=== PATIENT | female | born 1980 | race Caucasian/White ===

== ENCOUNTER 2023-09-15 08:37 | Day surgery (SDC) | payer BC ==
[~2023-09-15] VITALS: Ht 160 cm; Wt 125.0 kg
[2023-09-15 09:10] VITALS: BP 123/81; PULSE 74; RESP 16
[2023-09-15] MEDS ORDERED: BUSP10TA11 PO (09:22)
[2023-09-15] MEDS ORDERED: FLUO40CA10 PO (09:22)
[2023-09-15] MEDS ORDERED: MULT-1085 PO (09:22)
[2023-09-15] MEDS ORDERED: tumeric PO (09:22)
[2023-09-15] MEDS ORDERED: MIDAZolam 1 MG/ML 5ML VIAL ONE (10:32)
[2023-09-15] MEDS ORDERED: fentaNYL/PF 50MCG/1 ML 2ML syringe ONE (10:32)
[2023-09-15 11:06] VITALS: BP 105/68; PULSE 77; RESP 13; O2SAT 99
[2023-09-15 11:16] VITALS: BP 113/66; PULSE 75; RESP 11; O2SAT 95
[2023-09-15 11:26] VITALS: BP 120/74; PULSE 75; RESP 15; O2SAT 96
[2023-09-15 11:36] VITALS: BP 118/64; PULSE 75; RESP 15; O2SAT 97
[2023-09-15 12:46] VITALS: BP 123/81; PULSE 74; RESP 16
== END 2023-09-15 11:50 | disposition home or self-care (01) ==
LOC: GI LAB 08:37
PROVIDERS: ATTEND Internal Medicine Gastroenterology
DX: Z12.11 Encounter for screening for malignant neoplasm of colon (principal); K57.30 Diverticulosis of large intestine without perforation or abscess without bleeding; K64.8 Other hemorrhoids; Z80.0 Family history of malignant neoplasm of digestive organs
CPT/HCPCS: 45378; 99152; J2250; J3010; J7030; Z7512; 99153; A4620